=== PATIENT | male | born 1995 | race Caucasian/White ===

== ENCOUNTER 2018-10-05 19:43 | Emergency (ER) | payer OTHER ==
[2018-10-05] MEDS ORDERED: KETOROLAC TROMETHAMINE 60 MG/2 ML VIAL IM ONE (19:48)
--- NOTE | 2018-10-05 19:48 | PDOC ---
Rapid Medical Evaluation Time Seen by Provider: 10/05/18 19:44 Medical Evaluation: 10/05/18 19:45 HPI: L sided back pain for the last few hours increasing in severity PE: L CVAT ORDERS: CT, CBC CMP UA Cx torodol IM Discharge Disposition - Diagnosis Back pain - Referrals - Patient Instructions - Post Discharge Activity
[2018-10-05 19:49] VITALS: BMI 23.7
[2018-10-05] MEDS ORDERED: KETOROLAC TROMETHAMINE 60 MG/2 ML VIAL ONE (19:50)
[2018-10-05] MEDS ORDERED: SODIUM CHLORIDE 0.9% 500 ML INFUS.BAG IV ONE (19:58)
[2018-10-05] MEDS ORDERED: ONDANSETRON 4 MG/2 ML VIAL IVPB ONE (19:58)
[2018-10-05] MEDS ORDERED: SODIUM CHLORIDE 500 ML IV STA (20:27)
[2018-10-05] MEDS ORDERED: ONDANSETRON 4 MG/2 ML VIAL ONE (20:36)
--- NOTE | 2018-10-05 20:42 | PDOC ---
History of Present Illness - General Chief Complaint: Pain Stated Complaint: ABD PAIN Time Seen by Provider: 10/05/18 19:44 History Source: Patient Exam Limitations: No Limitations - History of Present Illness Initial Comments: 10/05/18 20:28 23 y/o M with PMHx of anxiety presents with lower back pain. Patient woke in his usual state of health and was able to tolerate breakfast and lunch. Around 4pm while at work, patient had sudden onset Right lower back pain. He tried to stretch and move around to relieve the pain. Shortly after, he felt RLQ pain. He then had a BM and voided dark urine with no gross blood present. He was able to travel home from [place] and ate dinner at 6pm. Shortly after eating, he then had sudden onset of Right lower back pain that wrapped around his torso to his RLQ. His pain then continued to worsen. During my interview patient mentioned the pain was 1/10 however at worst it was sharp and 10/10. Upon arrival in the ED, patient had 1 episode of NBNB vomiting. Additionally he endorses dysuria and denies hematuria. Denies any recent trauma, travel, sick contacts or recent medication changes. Denies any Fevers, chills, chest pain, SOB, Nausea, diarrhea, constipation, visual changes, photophobia. PCP: Dr. Peterson PMHx: Anxiety PSHx: Denies Allergies: NKDA Social: Denies tobacco, EtOH or drug use FHx: Noncontributory Past History - Past Medical History Allergies/Adverse Reactions: Allergies Allergy/AdvReac Type Severity Reaction Status Date / Time No Known Allergies Allergy Verified 10/05/18 19:49 Home Medications: Ambulatory Orders Naproxen 500 mg PO BID PRN #14 tablet 10/06/18 Naproxen 500 mg PO BID PRN #30 tablet MDD 2 tab 10/06/18 Oxycodone HCl/Acetaminophen [Percocet 5-325 mg Tablet] 1 tab PO Q12H PRN #4 tablet MDD 2 tabs 10/06/18 COPD: No Psychiatric Problems: Yes (ANXIETY) - Suicide/Smoking/Psychosocial Hx Smoking History: Never smoked Review of Systems - Review of Systems Able to Perform ROS?: Yes Is the patient limited Azeri proficient: No Constitutional: No: Chills, Fever, Weakness HEENTM: No: Blurred Vision, Double Vision Respiratory: No: Cough, Shortness of Breath Cardiac (ROS): No: Chest Pain, Edema, Lightheadedness ABD/GI: No: Abdominal Distended, Constipated, Diarrhea, Nausea, Vomiting : No: Dysuria, Hematuria Neurological: No: Numbness, Tingling *Physical Exam - Vital Signs Last Vital Signs Temp Pulse Resp BP Pulse Ox 112 H 20 127/79 98 10/05/18 19:45 10/05/18 19:45 10/05/18 19:45 10/05/18 19:45 - Physical Exam General Appearance: Yes: Nourished, Appropriately Dressed HEENT: positive: EOMI, HUE. negative: Pharyngeal Erythema, Tonsillar Exudate Neck: negative: Supple Respiratory/Chest: positive: Lungs Clear, Normal Breath Sounds. negative: Accessory Muscle Use, Crackles, Rhonchi, Wheezing Cardiovascular: positive: Regular Rhythm, Regular Rate, S1, S2. negative: Edema , JVD, Murmur Gastrointestinal/Abdominal: positive: Normal Bowel Sounds, Soft. 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 negative: Sensory Deficit ED Treatment Course - LABORATORY CBC & Chemistry Diagram: 10/05/18 21:00 10/05/18 21:00 - Medications Given in the ED: ED Medications Discontinued Medications Generic Name Dose Route Start Last Admin Trade Name Freq PRN Reason Stop Dose Admin Ketorolac Tromethamine 60 mg 10/05/18 19:48 10/05/18 19:53 Toradol Injection - IM 10/05/18 19:49 60 mg ONCE ONE Administration Medical Decision Making - Medical Decision Making 10/05/18 20:42 23 y/o M with PMHx of anxiety presents with lower back pain that radiates to the RLQ. No radiation to the groin. Currently Nontoxic appearing, VSS, with pain controlled. Given Ondansetron 4mg, 1L NS Bolus. Pain control via Ketorolac 60mg IM Will check CBC, CMP, Lipase, UA, Urine cx. CT A/P non contrast. 10/05/18 21:39 Labs without leukocytosis or electrolyte abnormality. Pain continues to worsen--Given 4mg IV Morphine x1 CT A/P Pending Signed out to Dr. Cabrera *DC/Admit/Observation/Transfer Diagnosis at time of Disposition: Back pain, Flank pain - Discharge Dispostion Condition at time of disposition: Stable - Prescriptions Prescriptions: Naproxen 500 mg PO BID PRN #14 tablet PRN Reason: Pain Naproxen 500 mg PO BID PRN #30 tablet MDD 2 tab PRN Reason: Pain Oxycodone HCl/Acetaminophen [Percocet 5-325 mg Tablet] 1 tab PO Q12H PRN #4 tablet MDD 2 tabs PRN Reason: Pain - Referrals Referrals: Carlitos Cardoso MD., [Staff Physician] - Vivi Peterson MD [Primary Care Provider] - - Patient Instructions Printed Discharge Instructions: DI for Kidney Stones, DI for Flank Pain Additional Instructions: Take naproxen twice a day as needed for pain. Do not take motrin, advil, ibuprofen, or any other NSAID medication while taking naproxen. If naproxen is not controlling your pain, you may take percocet for breakthrough pain. Follow up with the urologist within 1 week. A referral has been included for Dr. Cardoso. Please return to the emergency department with any new or worsening symptoms or concerns. Please follow up with your primary care physician within 72 hours. - Post Discharge Activity
[2018-10-05 21:14] LABS: BASO % 0.2 % (0-2.0); EOS % 0.1 % (0-4.5); HEMOGLOBIN 15.6 GM/dL (11.7-16.9); LYMPH % 11.1 % (8-40); MCH 28.9 pg (25.7-33.7); MCHC 33.8 g/dl (32.0-35.9); MEAN CELL VOLUME 85.6 fl (80-96); MEAN PLT VOLUME 8.6 fl (7.5-11.1); MONO % 6.2 % (3.8-10.2); NEUT % 82.4 % (42.8-82.8); PLATELET COUNT 197 K/MM3 (134-434); RBC 5.38 M/mm3 (4.00-5.60); RDW 13.3 % (11.9-15.9)
[2018-10-05] MEDS ORDERED: morphine CARPU-JECT 4 MG/1 ML DISP.SYRIN IVPUSH ONE ×2 (21:25→22:59)
[2018-10-05] MEDS ORDERED: morphine SULFATE 4 MG/ML VIAL ONE ×2 (21:28→23:21)
[2018-10-05 21:36] LABS: ALBUMIN 4.6 g/dl (3.4-5.0); BILIRUBIN,TOTAL 0.7 mg/dL (0.2-1); BLOOD UREA NITROGEN 12.3 mg/dL (7-18); CALCIUM 9.3 mg/dL (8.5-10.1); CREATININE 1.3 mg/dL (0.55-1.3); POTASSIUM 3.8 mmol/L (3.5-5.1); TOT PROT 7.8 g/dl (6.4-8.2)
--- NOTE | 2018-10-05 22:01 | PDOC ---
*Physical Exam - Vital Signs Last Vital Signs Temp Pulse Resp BP Pulse Ox 112 H 20 127/79 98 10/05/18 19:45 10/05/18 19:45 10/05/18 19:45 10/05/18 19:45 - Physical Exam Comments: 10/05/18 21:55 GENERAL: Awake, alert, and fully oriented, in mild acute distress HEAD: No signs of trauma, normocephalic, atraumatic EYES: PERRLA, EOMI, sclera anicteric, conjunctiva clear ENT: Auricles normal inspection, hearing grossly normal, nares patent, oropharynx clear without exudates. Moist mucosa NECK: Normal ROM, supple, no lymphadenopathy, JVD, or masses LUNGS: No distress, speaks full sentences, clear to auscultation bilaterally HEART: Regular rate and rhythm, normal S1 and S2, no murmurs, rubs or gallops, peripheral pulses normal and equal bilaterally. ABDOMEN: + RLQ abdominal ttp, R flank ttp. Soft, NDS, normoactive bowel sounds. No guarding, no rebound. No masses EXTREMITIES : Normal inspection, Normal range of motion, no edema. No clubbing or cyanosis. NEUROLOGICAL: Cranial nerves II through XII grossly intact. Normal speech, normal gait, no focal sensorimotor deficits SKIN: Warm, Dry, normal turgor, no rashes or lesions noted ED Treatment Course - LABORATORY CBC & Chemistry Diagram: 10/05/18 21:00 10/05/18 21:00 - ADDITIONAL ORDERS Additional order review: Laboratory Results 10/05/18 21:00 Sodium 140 Potassium 3.8 Chloride 104 Carbon Dioxide 27 Anion Gap 9 BUN 12.3 Creatinine 1.3 Est GFR (CKD-EPI)AfAm 89.76 Est GFR (CKD-EPI)NonAf 77.45 Random Glucose 141 H Calcium 9.3 Total Bilirubin 0.7 AST 17 ALT 18 Alkaline Phosphatase 71 Total Protein 7.8 Albumin 4.6 Lipase 133 10/05/18 21:00 RBC 5.38 MCV 85.6 MCHC 33.8 RDW 13.3 MPV 8.6 Neutrophils % 82.4 Lymphocytes % 11.1 Monocytes % 6.2 Eosinophils % 0.1 Basophils % 0.2 - Medications Given in the ED: ED Medications Discontinued Medications Generic Name Dose Route Start Last Admin Trade Name Freq PRN Reason Stop Dose Admin Sodium Chloride 500 mls @ 500 mls/hr 10/05/18 20:27 10/05/18 21:32 Normal Saline - IV 10/05/18 21:26 500 mls/hr ASDIR STA Administration Ketorolac Tromethamine 60 mg 10/05/18 19:48 10/05/18 19:53 Toradol Injection - IM 10/05/18 19:49 60 mg ONCE ONE Administration Morphine Sulfate 4 mg 10/05/18 21:25 10/05/18 21:32 Morphine Injection - IVPUSH 10/05/18 21:26 4 mg ONCE ONE Administration Ondansetron HCl 4 mg 10/05/18 19:58 10/05/18 20:12 Zofran Injection IVPB 10/05/18 19:59 4 mg ONCE ONE Administration Sodium Chloride 500 ml 10/05/18 19:58 10/05/18 20:12 Normal Saline - IV 10/05/18 19:59 500 ml ONCE ONE Administration Medical Decision Making - Medical Decision Making 10/05/18 21:54 23 yo M with h/o anxiety who p/w RLQ abdominal pain and R flank. + Patient endorsed by Dr. Diaz. Vitals wnl, AF, A&Ox3. + RLQ abdominal and R flank ttp. Denies vomitting, F,C, CP, SOB, urinary complaints, penile/scrotal pain or swelling, hematuria, BPR, diarrhea, constipation, lightheadedness, weakness, sensory changes. Pt. pending CTAP assess for nephrolithaisis, obstructive uropathy, colitis. Pt. received Toradol, NS, Morphine, Zofran. Symptoms well controlled. ED Course: Laboratory Tests 10/05/18 10/05/18 21:00 21:00 WBC 9.0 Hgb 15.6 Hct 46.0 Plt Count 197 Sodium 140 Potassium 3.8 Carbon Dioxide 27 BUN 12.3 Creatinine 1.3 10/05/18 22:35 Laboratory Tests 10/05/18 00:45 Urine Color Yellow Urine Appearance Cloudy Urine Ketones 1+ H Urine Blood 3+ H Urine Nitrite Negative Urine Bilirubin Negative Ur Leukocyte Esterase Negative Urine WBC (Auto) 3 Urine Casts (Auto) 12 10/06/18 02:16 3 mm right UVJ calculus with mild hydronephrosis Naproxen, Percocet sent to pharmacy. Stable for d/c with return precautions. *DC/Admit/Observation/Transfer Diagnosis at time of Disposition: Back pain, Flank pain - Discharge Dispostion Condition at time of disposition: Stable - Prescriptions Prescriptions: Naproxen 500 mg PO BID PRN #14 tablet PRN Reason: Pain Naproxen 500 mg PO BID PRN #30 tablet MDD 2 tab PRN Reason: Pain Oxycodone HCl/Acetaminophen [Percocet 5-325 mg Tablet] 1 tab PO Q12H PRN #4 tablet MDD 2 tabs PRN Reason: Pain - Referrals Referrals: Carlitos Cardoso MD., [Staff Physician] - Vivi Peterson MD [Primary Care Provider] - - Patient Instructions Printed Discharge Instructions: DI for Kidney Stones, DI for Flank Pain Additional Instructions: Take naproxen twice a day as needed for pain. Do not take motrin, advil, ibuprofen, or any other NSAID medication while taking naproxen. If naproxen is not controlling your pain, you may take percocet for breakthrough pain. Follow up with the urologist within 1 week. A referral has been included for Dr. Cardoso. Please return to the emergency department with any new or worsening symptoms or concerns. Please follow up with your primary care physician within 72 hours. - Post Discharge Activity
[2018-10-05] MEDS ORDERED: SODIUM CHLORIDE 1,000 ML IV STA (22:59)
--- NOTE | 2018-10-05 23:32 | PDOC ---
Documentation entered by Marty Aguirre SCRIBE, acting as scribe for Dawson Hanson MD. Dawson Hanson MD: This documentation has been prepared by the Timothy hinton Elijah, SCRIBE, under my direction and personally reviewed by me in its entirety. I confirm that the documentation accurately reflects all work, treatment, procedures, and medical decision making performed by me. Attending Attestation - Resident Resident Name: Oliver Diazleen - ED Attending Attestation I have performed the following: I have examined & evaluated the patient, The case was reviewed & discussed with the resident, I agree w/resident's findings & plan, Exceptions are as noted - HPI HPI: 10/05/18 23:07 The patient is a 23 year old male with a past medical history of anxiety who presents to the ED with pain in the lower flank radiating to the RLQ. The patient reports at around 4pm there was a sudden onset of R flank pain which radiated shortly after to the RLQ. Patient associates dysuria but had normal stool. The pain subsided until the patient returned home and after eating the pain came back in the same manner. The pain continued to worsen, which prompted his visit to the ED. The patient reports the pain at 10/10 at its worse. Patient had 1 episode of NBNB vomit while in the ED. Pt denies sexual activity recently, no hx STI. Denies fever, chills, chest pain, SOB, diarrhea, constipation. Denies penile DC/ testicular pain. Denies headache, stiff neck, LE edema, calf pain, rashes. Allergies: NKA PCP: Dr. Peterson - Physicial Exam PE: 10/05/18 23:03 GENERAL: Awake, alert, and fully oriented, in no acute distress but uncomfortable appearing holding R flank HEAD: No signs of trauma EYES: PERRLA, EOMI, sclera anicteric, conjunctiva clear ENT: Oropharynx clear without exudates. Moist mucosa NECK: Normal ROM, supple, no lymphadenopathy, JVD, or masses LUNGS: Breath sounds equal, clear to auscultation bilaterally. No wheezes, and no crackles HEART: Regular rate and rhythm, normal S1 and S2, no murmurs, rubs or gallops ABDOMEN: Soft, nontender, normoactive bowel sounds. No guarding, no rebound. No masses : No CVAT EXTREMITIES: Normal range of motion, no edema. No cords, erythema, or tenderness. WWP NEUROLOGICAL: Normal speech, cranial nerves intact, equal strength and sensation b/l SKIN: Warm, Dry, normal turgor, no rashes or lesions noted. - Medical Decision Making 10/05/18 23:00 23yo M presents to the ED with sudden onset R sided flank pain radiating to RLQ Vital with tachycardia, colicky appearing patient CTAP with 3mm stone with mild hydro at R UVJ Labs with no WBC or ADIS. Pt is afebrile, not toxic appearing UA pending, pt on liter #2 fluids at this point Despite 60 toradol IM and morphine 4mg, pt continues to have 7/10 pain Will give another round of morphine, reassess 10/06/18 00:40 Despite more fluids, pt still unable to produce UA Pain more controlled at this time Will reassess 10/06/18 01:45 UA not concerning for infx Pain well controlled, pt well appearing Pt given naproxen for pain with 4 tabs percocet for breakthrough pain Will give urology f/u Pt clinically stable for DC home I discussed the physical exam findings, ancillary test results and final diagnoses with the patient. I answered all of the patient's questions. The patient was satisfied with the care received and felt comfortable with the discharge plan and treatment plan. The patient will call their primary care physician within 24 hours to arrange follow-up and will return to the Emergency Department with any new, persistent or worsening symptoms.
[2018-10-06 01:30] LABS: EPI CELLS 1.7 /HPF (0-5/HPF); HYALINE CASTS 12 /lpf (0-8); PH,URINE 5.5 (5.0-8.0); URINE APPEARANCE CLOUDY; URINE BILIRUBIN NEGATIVE (NEGATIVE); URINE COLOR YELLOW; URINE GLUCOSE (UA) NEGATIVE (NEGATIVE); URINE KETONE 1+ (NEGATIVE); URINE LEUK ESTERASE NEGATIVE (NEGATIVE); URINE NITRITE NEGATIVE (NEGATIVE); URINE PROTEIN 1+ (NEGATIVE); URINE UROBILINOGEN 0.2 mg/dL (0.2-1.0); URINE WBC 3 /hpf (0-5)
[2018-10-06 02:18] LABS: URINE CRYSTALS 3+ /hpf; URINE RBC 15-25 /hpf (0-4)
[2018-10-06 02:28] VITALS: BP 120/51; PULSE 82; TEMP 98.3
== END 2018-10-06 02:30 | disposition home or self-care (01) ==
LOC: JER 19:43
PROC: 3E0233Z Introduction of Anti-inflammatory into Muscle, Percutaneous Approach (ICD-10-PCS; principal; 2018-10-05)
PROC: 3E0337Z Introduction of Electrolytic and Water Balance Substance into Peripheral Vein, Percutaneous Approach (ICD-10-PCS; 2018-10-05)
PROC: 3E033GC Introduction of Other Therapeutic Substance into Peripheral Vein, Percutaneous Approach (ICD-10-PCS; 2018-10-05)
PROC: 3E033NZ Introduction of Analgesics, Hypnotics, Sedatives into Peripheral Vein, Percutaneous Approach (ICD-10-PCS; 2018-10-05)
PROC: 3E033NZ Introduction of Analgesics, Hypnotics, Sedatives into Peripheral Vein, Percutaneous Approach (ICD-10-PCS; 2018-10-05)
DX: N13.2 Hydronephrosis with renal and ureteral calculous obstruction (principal)
CPT/HCPCS: 36415; 74176-TC; 80053; 81003; 83690; 85025; 87086; 99284-25; J7030

== ENCOUNTER 2023-07-17 06:17 | Emergency (ER) | payer OTHER ==
[2023-07-17 06:29] VITALS: BP 149/87; PULSE 118; RESP 16; TEMP 98.9; BMI 25.7
== END 2023-07-17 07:44 | disposition home or self-care (01) ==
LOC: FER 06:17
DX: R09.82 Postnasal drip (principal); R05.2 Subacute cough
CPT/HCPCS: 99283-25